=== PATIENT | female | born 1985 | race Caucasian/White ===

== ENCOUNTER 2016-02-17 19:48 | Emergency (ER) | payer OTHER ==
[~2016-02-17] VITALS: Ht 160 cm; Wt 119.7 kg
[~2016-02-17 19:48] MED LIST: ADVIL,NUPRIN,M200 MG PO; AMBIEN5 MG PO; BUPROPION XL150 MG PO; CAPITAL WITH C473 ML PO; CELEXA20 MG PO; CELEXA40 MG PO; CITALOPRAM HBR20 MG PO; DEPAKOTE ER250 MG PO; DEPAKOTE500 MG PO; DIVALPROEX SOD250 M1 PO; FLONASE16 G1 BOTH NARES; LEVAQUIN500 MG PO; NALTREXONE HCL50 MG PO; PEN-VEE K,VEET500 MG PO; SORE THROAT LO1 EAC3 MM; TRIPLE ANTIB28.35 GM TP; TYLENOL EXTRA500 MG PO; TYLENOL PM1 CAPLET PO; TYLENOL REGULA325 MG PO; ZOLPIDEM TARTRAT5 MG PO
[2016-02-17 20:44] LABS: HEMATOCRIT 37.6 % (36.0-46.0); MCHC 32.4 G/DL (30.0-36.0); MCV 86.4 FL (83-99); MEAN PLAT.VOLUME 9.7 uM^3 (9.5-12.4); PLATELET COUNT 346 K/uL (156-360); RBC DIS.WIDTH-CV 13.2 % (11.8-14.6); RBC DIS.WIDTH-SD 40.6 % (39-53); RED BLOOD COUNT 4.35 M/uL (3.80-5.20); WHITE BLOOD COUNT 10.7 K/uL (4.1-10.2)
[2016-02-17] MEDS ORDERED: DEPAKOTE ER500 MG PO (20:50)
[2016-02-17 20:54] LABS: CHLORIDE 105 mEq/L (99-109); POTASSIUM 3.7 mEq/L (3.7-5.4); SODIUM 142 mEq/L (136-147)
[2016-02-17 20:57] LABS: GLUCOSE 113 mg/dL (70-99)
[2016-02-17 20:58] LABS: ANION GAP 10 MEQ/L (2-14)
[2016-02-17 20:59] LABS: TOTAL BILIRUBIN 0.2 mg/dL (0.0-1.0)
[2016-02-17 21:00] LABS: ALKALINE PHOSPHATASE 97 IU/L (3-129); GFR ESTIMATE (CALCULATED) > 59 mL/min/
[2016-02-17 21:01] LABS: UREA NITROGEN (BUN) 12 mg/dL (9-23)
[2016-02-17 21:04] LABS: LIPASE 22 U/L (1.0-51.0)
[2016-02-17 21:10] LABS: QUANTITATIVE HCG < 4.0 MIU/ML
[2016-02-17 21:41] LABS: ADD MIUA? YES; BILIRUBIN NEGATIVE; BLOOD MODERATE; COLOR YELLOW ((YELLOW)); GLUCOSE (STRIP) NEGATIVE; KETONES TRACE; LEUKOCYTES SMALL; NITRITE NEGATIVE; PROTEIN (STRIP) TRACE; SPECIFIC GRAVITY 1.028 (1.000-1.030)
[2016-02-17 22:33] LABS: BACTERIA 1+; CASTS NONE SEEN /LPF; CRYSTALS NONE SEEN; EPITHELIAL CELLS RARE; MUCUS NONE SEEN; UCUL ADDED? NO
[2016-02-17] MEDS ORDERED: PERCOCET 5/31 TABLET PO (22:59)
[2016-02-17] MEDS ORDERED: ZOFRAN ODT4 MG PO (22:59)
[2016-02-17] MEDS ORDERED: AUGMENTIN875 MG PO (22:59)
[2016-02-18 00:21] VITALS: BP 110/57
[2016-02-18] MEDS ORDERED: NAPROXEN500 MG PO (22:56)
[2016-02-18] MEDS ORDERED: TYLENOL EXTRA500 MG PO (22:56)
[2016-02-18] MEDS ORDERED: AMOX TR-K CLV1 EAC4 PO (22:57)
== END 2016-02-18 00:23 | disposition home or self-care (01) ==
LOC: EME 19:48 → RME 19:48
DX: R10.11 Right upper quadrant pain (principal); G47.30 Sleep apnea, unspecified; F17.200 Nicotine dependence, unspecified, uncomplicated
CPT/HCPCS: 74177; 76705; 80053; 81003; 83690; 84702; 85027; 99281; 99284; J1335; J1885; J2405; J3010; J7050

== ENCOUNTER 2016-02-18 18:37 | Observation (INO) | payer OTHER ==
[~2016-02-18] VITALS: Ht 162.6 cm; Wt 119.8 kg
[~2016-02-18 18:37] MED LIST changes: +AUGMENTIN875 MG PO; +DEPAKOTE ER500 MG PO; +PERCOCET 5/31 TABLET PO; +ZOFRAN ODT4 MG PO
[2016-02-18 19:43] LABS: HEMATOCRIT 36.1 % (36.0-46.0); MCHC 32.1 G/DL (30.0-36.0); MEAN PLAT.VOLUME 9.4 uM^3 (9.5-12.4); PLATELET COUNT 305 K/uL (156-360); RBC DIS.WIDTH-SD 40.5 % (39-53); RED BLOOD COUNT 4.15 M/uL (3.80-5.20)
[2016-02-18 19:51] LABS: CHLORIDE 104 mEq/L (99-109); POTASSIUM 4.1 mEq/L (3.7-5.4); SODIUM 138 mEq/L (136-147)
[2016-02-18 19:53] LABS: ADD MIUA? YES; BILIRUBIN NEGATIVE; BLOOD LARGE; COLOR YELLOW ((YELLOW)); GLUCOSE (STRIP) NEGATIVE; KETONES NEGATIVE; LEUKOCYTES SMALL; NITRITE NEGATIVE; PROTEIN (STRIP) TRACE; SPECIFIC GRAVITY 1.031 (1.000-1.030)
[2016-02-18 19:53] LABS: GLUCOSE 86 mg/dL (70-99)
[2016-02-18 19:54] LABS: ANION GAP 7 MEQ/L (2-14)
[2016-02-18 19:57] LABS: ALKALINE PHOSPHATASE 85 IU/L (3-129); GFR ESTIMATE (CALCULATED) > 59 mL/min/
[2016-02-18 19:58] LABS: UREA NITROGEN (BUN) 14 mg/dL (9-23)
[2016-02-18 20:04] LABS: TOTAL BILIRUBIN 0.3 mg/dL (0.0-1.0)
[2016-02-18 20:07] LABS: QUANTITATIVE HCG < 4.0 MIU/ML
[2016-02-18 20:43] LABS: BACTERIA 1+; CASTS NONE SEEN /LPF; CRYSTALS NONE SEEN; EPITHELIAL CELLS 3+; MUCUS 4+; UCUL ADDED? NO
[2016-02-18 22:47] LABS: D-DIMER ELISA 0.37 mg/L FEU (< 0.57)
[2016-02-18] MEDS ORDERED: NAPROXEN500 MG PO (22:56)
[2016-02-18] MEDS ORDERED: TYLENOL EXTRA500 MG PO (22:56)
[2016-02-18] MEDS ORDERED: AMOX TR-K CLV1 EAC4 PO (22:57)
[2016-02-19 00:05] LABS: LIPASE 14 U/L (1.0-51.0)
[2016-02-19 00:27] VITALS: BP 100/48
[2016-02-19 04:48] VITALS: BP 104/50
[2016-02-19 07:50] VITALS: BP 116/57
[2016-02-19 07:57] LABS: HEMATOCRIT 33.3 % (36.0-46.0); MCH 28.2 PG (29.0-34.0); MCHC 32.1 G/DL (30.0-36.0); MCV 87.6 FL (83-99); MEAN PLAT.VOLUME 9.1 uM^3 (9.5-12.4); PLATELET COUNT 234 K/uL (156-360); RBC DIS.WIDTH-CV 13.3 % (11.8-14.6); RBC DIS.WIDTH-SD 42.9 % (39-53); WHITE BLOOD COUNT 7.3 K/uL (4.1-10.2)
[2016-02-19 08:18] LABS: ANION GAP 10 MEQ/L (2-14); CHLORIDE 102 MEQ/L (99-109); POTASSIUM 4.2 MEQ/L (3.7-5.4); SAMPLE HEMOLYSIS CHECK 0; SAMPLE ICTERIC CHECK 0; SAMPLE LIPEMIA CHECK 0; SODIUM 139 MEQ/L (136-147)
[2016-02-19 08:23] LABS: GFR ESTIMATE (CALCULATED) > 59 mL/min/; GLUCOSE 89 mg/dL (70-99); UREA NITROGEN (BUN) 12 mg/dL (9-23)
[2016-02-19 11:40] VITALS: BP 115/56
[2016-02-19 15:27] VITALS: BP 119/63
[2016-02-19 20:15] VITALS: BP 117/71
[2016-02-20 00:01] VITALS: BP 110/58
[2016-02-20 04:54] VITALS: BP 88/50
[2016-02-20 07:50] VITALS: BP 131/74
[2016-02-20] MEDS ORDERED: CEFTIN500 MG PO (11:23)
[2016-02-20] MEDS ORDERED: DICYCLOMINE HCL10 MG PO (11:23)
[2016-02-20] MEDS ORDERED: METOCLOPRAMIDE H5 MG PO (11:23)
[2016-02-20 11:42] VITALS: BP 114/62
== END 2016-02-20 13:20 | disposition home or self-care (01) ==
LOC: EME 18:37 → EDOF 23:30 → 5WEST 02-19 00:27
PROVIDERS: Internal Medicine
DX: R10.11 Right upper quadrant pain (principal); F60.3 Borderline personality disorder; F32.9 Major depressive disorder, single episode, unspecified; Z91.5 Personal history of self-harm; R11.2 Nausea with vomiting, unspecified; R10.13 Epigastric pain; G47.30 Sleep apnea, unspecified; D68.51 Activated protein C resistance; F17.210 Nicotine dependence, cigarettes, uncomplicated; Z83.3 Family history of diabetes mellitus; Z82.49 Family history of ischemic heart disease and other diseases of the circulatory system; Z88.5 Allergy status to narcotic agent
CPT/HCPCS: 76705; 80048; 80053; 81003; 83605; 83690; 84702; 85027; 85379; 99281; 99285; G0378; J1170; J1644; J1885; J2405; J7030; S0028

== ENCOUNTER 2016-03-27 15:31 | Emergency (ER) | payer OTHER ==
[~2016-03-27] VITALS: Ht 161.3 cm; Wt 120.0 kg
[~2016-03-27 15:31] MED LIST changes: +AMOX TR-K CLV1 EAC4 PO; +CEFTIN500 MG PO; +DICYCLOMINE HCL10 MG PO; +METOCLOPRAMIDE H5 MG PO; +NAPROXEN500 MG PO
[2016-03-27 17:18] LABS: HEMATOCRIT 37.3 % (36.0-46.0); MCH 28.2 PG (29.0-34.0); MCV 85.6 FL (83-99); MEAN PLAT.VOLUME 9.5 uM^3 (9.5-12.4); PLATELET COUNT 293 K/uL (156-360); RBC DIS.WIDTH-CV 13.1 % (11.8-14.6); RBC DIS.WIDTH-SD 40.1 % (39-53); RED BLOOD COUNT 4.36 M/uL (3.80-5.20)
[2016-03-27 17:46] LABS: CHLORIDE 104 mEq/L (99-109); POTASSIUM 4.1 mEq/L (3.7-5.4); SODIUM 139 mEq/L (136-147); TROP-I INTERPRETATION NEGATIVE; TROPONIN-I < 0.01 ng/mL (0.0-0.30)
[2016-03-27 17:48] LABS: GLUCOSE 107 mg/dL (70-99)
[2016-03-27 17:50] LABS: ANION GAP 10 MEQ/L (2-14); TOTAL BILIRUBIN 0.3 mg/dL (0.0-1.0)
[2016-03-27 17:52] LABS: ALKALINE PHOSPHATASE 96 IU/L (3-129); GFR ESTIMATE (CALCULATED) > 59 mL/min/
[2016-03-27 17:53] LABS: UREA NITROGEN (BUN) 8 mg/dL (9-23)
[2016-03-27 17:55] LABS: LIPASE 21 U/L (1.0-51.0)
[2016-03-27 19:19] LABS: ADD MIUA? YES; BILIRUBIN NEGATIVE; BLOOD SMALL; COLOR STRAW ((YELLOW)); GLUCOSE (STRIP) NEGATIVE; KETONES NEGATIVE; LEUKOCYTES TRACE; NITRITE NEGATIVE; PROTEIN (STRIP) NEGATIVE; SPECIFIC GRAVITY 1.009 (1.000-1.030); UROBILINOGEN 0.2 MG/DL (0.2-1.0)
[2016-03-27 19:19] LABS: QUANTITATIVE HCG < 4.0 MIU/ML
[2016-03-27 19:21] LABS: BACTERIA NONE SEEN /HPF; EPITHELIAL CELLS 1+ /HPF; MUCUS TRACE /LPF; RED BLOOD CELLS 0-5 /HPF (0-5); UCUL ADDED? NO; WHITE BLOOD CELLS 0-5 /HPF (0-5)
[2016-03-27] MEDS ORDERED: OMEPRAZOLE40 M1 PO (20:52)
[2016-03-27] MEDS ORDERED: ZOFRAN ODT4 MG PO (21:01)
[2016-03-27] MEDS ORDERED: PERCOCET 5/31 TABLET PO (21:01)
[2016-03-27 21:19] VITALS: BP 119/55
== END 2016-03-27 21:19 | disposition home or self-care (01) ==
LOC: EME 15:31
PROVIDERS: Physician Assistant
DX: R07.89 Other chest pain (principal); R10.13 Epigastric pain; M54.9 Dorsalgia, unspecified; F17.200 Nicotine dependence, unspecified, uncomplicated
CPT/HCPCS: 71020; 76705; 80053; 81003; 83690; 84484; 84702; 85027; 93005; 99281; 99284

== ENCOUNTER 2016-04-17 08:52 | Emergency (ER) | payer OTHER ==
[~2016-04-17] VITALS: Ht 161.3 cm; Wt 118.3 kg
[~2016-04-17 08:52] MED LIST changes: +OMEPRAZOLE40 M1 PO
[2016-04-17] MEDS ORDERED: TYLENOL WITH C1 EACH PO (10:02)
[2016-04-17 10:15] VITALS: BP 120/71
== END 2016-04-17 10:15 | disposition home or self-care (01) ==
LOC: EME 08:52
DX: S60.212A Contusion of left wrist, initial encounter (principal); X50.0XXA Overexertion from strenuous movement or load, initial encounter; Y93.E6 Activity, residential relocation
CPT/HCPCS: 73110; 99281; 99283

== ENCOUNTER 2016-05-16 08:52 | Emergency (ER) | payer OTHER ==
[~2016-05-16] VITALS: Ht 160 cm; Wt 113.7 kg
[~2016-05-16 08:52] MED LIST changes: +TYLENOL WITH C1 EACH PO
[2016-05-16 09:58] LABS: EOSINOPHIL (%) 0 % (0-5); HEMATOCRIT 39.7 % (36.0-46.0); IMMATURE GRANULOCYTE (%) 0.4 % (0.0-0.7); INSTRUMENT ABS NEUTROPHIL CT 3.7 K/uL; LYMPHOCYTE COUNT 0.7 K/uL (1.0-2.8); MCH 27.1 PG (29.0-34.0); MCHC 31.5 G/DL (30.0-36.0); MCV 85.9 FL (83-99); MEAN PLAT.VOLUME 9.3 uM^3 (9.5-12.4); MONOCYTE (%) 11.1 % (3-12); MONOCYTE COUNT 0.6 K/uL (0-0.8); NEUTROPHIL (%) 73.9 % (45-76); NEUTROPHIL COUNT 3.7 K/uL (1.8-6.4); PLATELET COUNT 282 K/uL (156-360); RBC DIS.WIDTH-CV 13.2 % (11.8-14.6); RBC DIS.WIDTH-SD 41.1 % (39-53); RED BLOOD COUNT 4.62 M/uL (3.80-5.20); WHITE BLOOD COUNT 4.9 K/uL (4.1-10.2)
[2016-05-16 10:09] LABS: CHLORIDE 102 mEq/L (99-109)
[2016-05-16 10:10] LABS: POTASSIUM 3.4 mEq/L (3.7-5.4); SODIUM 137 mEq/L (136-147)
[2016-05-16 10:12] LABS: GLUCOSE 95 mg/dL (70-99)
[2016-05-16 10:13] LABS: ANION GAP 10 MEQ/L (2-14)
[2016-05-16 10:14] LABS: TOTAL BILIRUBIN 0.5 mg/dL (0.0-1.0)
[2016-05-16 10:15] LABS: ALKALINE PHOSPHATASE 81 IU/L (3-129); GFR ESTIMATE (CALCULATED) > 59 mL/min/
[2016-05-16 10:17] LABS: UREA NITROGEN (BUN) 7 mg/dL (9-23)
[2016-05-16 11:23] LABS: INTERNAL CONTROL VALID? YES
[2016-05-16 11:44] LABS: ADD MIUA? YES; BILIRUBIN NEGATIVE; BLOOD LARGE; COLOR STRAW ((YELLOW)); GLUCOSE (STRIP) NEGATIVE; KETONES LARGE; LEUKOCYTES MODERATE; NITRITE POSITIVE; PROTEIN (STRIP) TRACE; UROBILINOGEN 0.2 MG/DL (0.2-1.0)
[2016-05-16 12:01] LABS: RED BLOOD CELLS 0-5 /HPF (0-5)
[2016-05-16 12:02] LABS: BACTERIA 1+ /HPF; CASTS NONE SEEN /LPF; CRYSTALS NONE SEEN; EPITHELIAL CELLS 1+ /HPF; MUCUS NONE SEEN /LPF
[2016-05-16] MEDS ORDERED: ZOFRAN ODT4 MG PO (12:04)
[2016-05-16] MEDS ORDERED: MACROBID100 MG PO (12:04)
[2016-05-16 13:06] VITALS: BP 120/61
== END 2016-05-16 13:10 | disposition home or self-care (01) ==
LOC: EME 08:52
PROVIDERS: Physician Assistant
DX: N39.0 Urinary tract infection, site not specified (principal); K52.9 Noninfective gastroenteritis and colitis, unspecified; Z87.891 Personal history of nicotine dependence
CPT/HCPCS: 80053; 81003; 84703; 85025; 99281; 99284; J2405; J7030

== ENCOUNTER 2016-05-18 09:03 | Emergency (ER) | payer OTHER ==
[~2016-05-18] VITALS: Ht 160 cm; Wt 115.0 kg
[~2016-05-18 09:03] MED LIST changes: +MACROBID100 MG PO
[2016-05-18 09:46] LABS: HEMATOCRIT 37.7 % (36.0-46.0); MCH 27.6 PG (29.0-34.0); MCHC 32.1 G/DL (30.0-36.0); MCV 85.9 FL (83-99); MEAN PLAT.VOLUME 9.3 uM^3 (9.5-12.4); PLATELET COUNT 303 K/uL (156-360); RBC DIS.WIDTH-CV 13.2 % (11.8-14.6); RBC DIS.WIDTH-SD 41.5 % (39-53); RED BLOOD COUNT 4.39 M/uL (3.80-5.20); WHITE BLOOD COUNT 5.3 K/uL (4.1-10.2)
[2016-05-18] MEDS ORDERED: ZOFRAN ODT4 MG PO (09:46)
[2016-05-18] MEDS ORDERED: MACROBID100 MG PO (09:47)
[2016-05-18 09:54] LABS: CHLORIDE 105 mEq/L (99-109); POTASSIUM 3.5 mEq/L (3.7-5.4); SODIUM 139 mEq/L (136-147)
[2016-05-18 09:56] LABS: GLUCOSE 89 mg/dL (70-99)
[2016-05-18 09:58] LABS: ANION GAP 12 MEQ/L (2-14)
[2016-05-18 10:00] LABS: GFR ESTIMATE (CALCULATED) > 59 mL/min/
[2016-05-18 10:01] LABS: UREA NITROGEN (BUN) 7 mg/dL (9-23)
[2016-05-18 10:10] LABS: QUANTITATIVE HCG < 4.0 MIU/ML
[2016-05-18] MEDS ORDERED: BENTYL10 MG PO (12:44)
[2016-05-18 13:03] VITALS: BP 122/67
== END 2016-05-18 13:03 | disposition home or self-care (01) ==
LOC: EME 09:03
DX: R11.2 Nausea with vomiting, unspecified (principal); R19.7 Diarrhea, unspecified
CPT/HCPCS: 80048; 81003; 84702; 85027; 99281; 99285; J2405; J7030

== ENCOUNTER 2016-06-06 13:34 | Emergency (ER) | payer OTHER ==
[~2016-06-06] VITALS: Ht 160 cm; Wt 114.5 kg
[~2016-06-06 13:34] MED LIST changes: +BENTYL10 MG PO
[2016-06-06 15:39] VITALS: BP 136/79
[2016-06-06] MEDS ORDERED: FLEXERIL10 MG PO (15:46)
[2016-06-06] MEDS ORDERED: LIDODERM 5% P1 PATCH TD (15:46)
[2016-06-06] MEDS ORDERED: PERCOCET 5/31 TABLET PO (15:46)
== END 2016-06-06 16:00 | disposition home or self-care (01) ==
LOC: EME 13:34
DX: S30.0XXA Contusion of lower back and pelvis, initial encounter (principal); S20.229A Contusion of unspecified back wall of thorax, initial encounter; W10.9XXA Fall (on) (from) unspecified stairs and steps, initial encounter; F17.200 Nicotine dependence, unspecified, uncomplicated; Z88.6 Allergy status to analgesic agent
CPT/HCPCS: 71020; 72070; 72100; 99281; 99284; J3010

== ENCOUNTER 2016-06-10 22:05 | Emergency (ER) | payer OTHER ==
[~2016-06-10] VITALS: Ht 160 cm; Wt 114.8 kg
[~2016-06-10 22:05] MED LIST changes: +FLEXERIL10 MG PO; +LIDODERM 5% P1 PATCH TD
[2016-06-10] MEDS ORDERED: ULTRACET1 TABLET PO (23:21)
[2016-06-10] MEDS ORDERED: MOTRIN600 MG PO (23:21)
[2016-06-11 00:18] VITALS: BP 120/72
== END 2016-06-11 00:21 | disposition home or self-care (01) ==
LOC: EME 22:05
DX: S62.607A Fracture of unspecified phalanx of left little finger, initial encounter for closed fracture (principal); S60.512A Abrasion of left hand, initial encounter; S63.92XA Sprain of unspecified part of left wrist and hand, initial encounter; W18.30XA Fall on same level, unspecified, initial encounter; Y93.K1 Activity, walking an animal
CPT/HCPCS: 73130; 99281; 99285

== ENCOUNTER 2016-08-04 13:40 | Emergency (ER) | payer OTHER ==
[~2016-08-04] VITALS: Ht 160 cm; Wt 113.6 kg
[~2016-08-04 13:40] MED LIST changes: +MOTRIN600 MG PO; +ULTRACET1 TABLET PO
[2016-08-04 14:45] LABS: HEMATOCRIT 38.2 % (36.0-46.0); MCH 27.5 PG (29.0-34.0); MCHC 31.9 G/DL (30.0-36.0); MCV 86.2 FL (83-99); MEAN PLAT.VOLUME 9.1 uM^3 (9.5-12.4); PLATELET COUNT 366 K/uL (156-360); RBC DIS.WIDTH-CV 13.1 % (11.8-14.6); RBC DIS.WIDTH-SD 40.6 % (39-53); RED BLOOD COUNT 4.43 M/uL (3.80-5.20); WHITE BLOOD COUNT 9.8 K/uL (4.1-10.2)
[2016-08-04 15:11] LABS: QUANTITATIVE HCG < 4.0 MIU/ML
[2016-08-04 15:23] LABS: CHLORIDE 104 mEq/L (99-109); POTASSIUM 4.2 mEq/L (3.7-5.4); SODIUM 139 mEq/L (136-147)
[2016-08-04 15:26] LABS: GLUCOSE 79 mg/dL (70-99)
[2016-08-04 15:27] LABS: ANION GAP 10 MEQ/L (2-14)
[2016-08-04 15:28] LABS: TOTAL BILIRUBIN 0.2 mg/dL (0.0-1.0)
[2016-08-04 15:29] LABS: ALKALINE PHOSPHATASE 81 IU/L (3-129); GFR ESTIMATE (CALCULATED) > 59 mL/min/
[2016-08-04 15:30] LABS: UREA NITROGEN (BUN) 8 mg/dL (9-23)
[2016-08-04 15:41] LABS: ADD MIUA? YES; BILIRUBIN NEGATIVE; BLOOD NEGATIVE; COLOR YELLOW ((YELLOW)); GLUCOSE (STRIP) NEGATIVE; KETONES NEGATIVE; LEUKOCYTES SMALL; NITRITE NEGATIVE; PROTEIN (STRIP) NEGATIVE; UROBILINOGEN 0.2 MG/DL (0.2-1.0)
[2016-08-04 15:46] LABS: BACTERIA NONE SEEN /HPF; EPITHELIAL CELLS 1+ /HPF; MUCUS TRACE /LPF; RED BLOOD CELLS 0-5 /HPF (0-5); UCUL ADDED? NO; WHITE BLOOD CELLS 0-5 /HPF (0-5)
[2016-08-04 17:05] LABS: LIPASE 18 U/L (1.0-51.0)
[2016-08-04] MEDS ORDERED: ZOFRAN ODT8 MG PO (18:24)
[2016-08-04] MEDS ORDERED: CARAFATE1 GM PO (18:24)
[2016-08-04 18:44] VITALS: BP 141/93
== END 2016-08-04 18:46 | disposition home or self-care (01) ==
LOC: EME 13:40 → EXP 13:40
DX: R10.13 Epigastric pain (principal); F17.200 Nicotine dependence, unspecified, uncomplicated
CPT/HCPCS: 76705; 80053; 81003; 83690; 84702; 85027; 99281; 99284; Q0169

== ENCOUNTER 2016-08-29 17:51 | Emergency (ER) | payer OTHER ==
[~2016-08-29] VITALS: Ht 160 cm; Wt 111.0 kg
[~2016-08-29 17:51] MED LIST changes: +CARAFATE1 GM PO; +ZOFRAN ODT8 MG PO
[2016-08-29 18:41] LABS: HEMATOCRIT 38.5 % (36.0-46.0); MCH 27.3 PG (29.0-34.0); MCHC 32.2 G/DL (30.0-36.0); MCV 84.8 FL (83-99); MEAN PLAT.VOLUME 9.4 uM^3 (9.5-12.4); PLATELET COUNT 344 K/uL (156-360); RBC DIS.WIDTH-CV 13.2 % (11.8-14.6); RBC DIS.WIDTH-SD 40.6 % (39-53); RED BLOOD COUNT 4.54 M/uL (3.80-5.20); WHITE BLOOD COUNT 10.1 K/uL (4.1-10.2)
[2016-08-29 18:54] LABS: CHLORIDE 104 mEq/L (99-109); POTASSIUM 3.9 mEq/L (3.7-5.4); SODIUM 139 mEq/L (136-147)
[2016-08-29 18:56] LABS: GLUCOSE 85 mg/dL (70-99)
[2016-08-29 18:57] LABS: ANION GAP 11 MEQ/L (2-14)
[2016-08-29 18:58] LABS: TOTAL BILIRUBIN 0.2 mg/dL (0.0-1.0)
[2016-08-29 18:59] LABS: ALKALINE PHOSPHATASE 98 IU/L (3-129)
[2016-08-29 19:00] LABS: GFR ESTIMATE (CALCULATED) > 59 mL/min/
[2016-08-29 19:01] LABS: UREA NITROGEN (BUN) 9 mg/dL (9-23)
[2016-08-29 19:03] LABS: LIPASE 18 U/L (1.0-51.0)
[2016-08-29 19:10] LABS: QUANTITATIVE HCG < 4.0 MIU/ML
[2016-08-29 19:31] LABS: ADD MIUA? YES; BILIRUBIN NEGATIVE; BLOOD SMALL; COLOR YELLOW ((YELLOW)); GLUCOSE (STRIP) NEGATIVE; KETONES NEGATIVE; LEUKOCYTES NEGATIVE; NITRITE NEGATIVE; PROTEIN (STRIP) NEGATIVE; SPECIFIC GRAVITY 1.014 (1.000-1.030); UROBILINOGEN 0.2 MG/DL (0.2-1.0)
[2016-08-29 19:38] LABS: BACTERIA NONE SEEN /HPF; EPITHELIAL CELLS 1+ /HPF; MUCUS TRACE /LPF; RED BLOOD CELLS 0-5 /HPF (0-5); UCUL ADDED? NO; WHITE BLOOD CELLS 0-5 /HPF (0-5)
[2016-08-30] MEDS ORDERED: ZOFRAN ODT4 MG PO (00:09)
[2016-08-30] MEDS ORDERED: MOTRIN800 MG PO (00:09)
[2016-08-30] MEDS ORDERED: PERCOCET 5/31 TABLET PO (00:09)
[2016-08-30 00:32] VITALS: BP 94/49
[2016-08-31] MEDS ORDERED: ZANTAC150 MG PO (16:12)
== END 2016-08-30 00:45 | disposition home or self-care (01) ==
LOC: EME 17:51
DX: R10.11 Right upper quadrant pain (principal); R10.31 Right lower quadrant pain; F17.200 Nicotine dependence, unspecified, uncomplicated; G47.30 Sleep apnea, unspecified; Z99.89 Dependence on other enabling machines and devices; Z88.5 Allergy status to narcotic agent
CPT/HCPCS: 74177; 76705; 80053; 81003; 83690; 84702; 85027; 99281; 99285; J1200; J1885; J2405; J2765; J3010; J7030

== ENCOUNTER 2016-08-31 11:16 | Observation (INO) | payer OTHER ==
[~2016-08-31] VITALS: Ht 161.3 cm; Wt 111.3 kg
[~2016-08-31 11:16] MED LIST changes: +MOTRIN800 MG PO
[2016-08-31 12:15] LABS: HEMATOCRIT 37.5 % (36.0-46.0); MCH 27.4 PG (29.0-34.0); MCV 85.6 FL (83-99); MEAN PLAT.VOLUME 9.4 uM^3 (9.5-12.4); PLATELET COUNT 316 K/uL (156-360); RBC DIS.WIDTH-CV 13.2 % (11.8-14.6); RBC DIS.WIDTH-SD 40.7 % (39-53); RED BLOOD COUNT 4.38 M/uL (3.80-5.20); WHITE BLOOD COUNT 7.8 K/uL (4.1-10.2)
[2016-08-31 12:26] LABS: CHLORIDE 103 mEq/L (99-109); POTASSIUM 4.1 mEq/L (3.7-5.4); SODIUM 139 mEq/L (136-147)
[2016-08-31 12:28] LABS: GLUCOSE 77 mg/dL (70-99)
[2016-08-31 12:30] LABS: ANION GAP 9 MEQ/L (2-14)
[2016-08-31 12:32] LABS: ALKALINE PHOSPHATASE 96 IU/L (3-129); GFR ESTIMATE (CALCULATED) > 59 mL/min/
[2016-08-31 12:33] LABS: UREA NITROGEN (BUN) 8 mg/dL (9-23)
[2016-08-31 12:34] LABS: TOTAL BILIRUBIN 0.3 mg/dL (0.0-1.0)
[2016-08-31 12:41] LABS: QUANTITATIVE HCG < 4.0 MIU/ML
[2016-08-31 13:06] LABS: ADD MIUA? NO; BILIRUBIN NEGATIVE; BLOOD NEGATIVE; COLOR STRAW ((YELLOW)); GLUCOSE (STRIP) NEGATIVE; KETONES NEGATIVE; LEUKOCYTES NEGATIVE; NITRITE NEGATIVE; PROTEIN (STRIP) NEGATIVE; SPECIFIC GRAVITY 1.012 (1.000-1.030); UCUL ADDED? NO; UROBILINOGEN 0.2 MG/DL (0.2-1.0)
[2016-08-31] MEDS ORDERED: ZANTAC150 MG PO (16:12)
[2016-08-31 17:45] VITALS: BP 144/73
[2016-08-31 20:33] VITALS: BP 116/59
[2016-09-01] VITALS (7 sets, daily range): BP systolic 107–131; BP diastolic 55–63
[2016-09-01 07:02] LABS: EOSINOPHIL (%) 3.1 % (0-5); EOSINOPHIL COUNT 0.2 K/uL (0-0.3); HEMATOCRIT 34.8 % (36.0-46.0); IMMATURE GRANULOCYTE (%) 0.3 % (0.0-0.7); INSTRUMENT ABS NEUTROPHIL CT 4.9 K/uL; LYMPHOCYTE COUNT 1.5 K/uL (1.0-2.8); MCH 27.8 PG (29.0-34.0); MCHC 31.9 G/DL (30.0-36.0); MCV 87.2 FL (83-99); MEAN PLAT.VOLUME 9.8 uM^3 (9.5-12.4); MONOCYTE (%) 6.4 % (3-12); MONOCYTE COUNT 0.5 K/uL (0-0.8); NEUTROPHIL (%) 68.6 % (45-76); NEUTROPHIL COUNT 4.9 K/uL (1.8-6.4); PLATELET COUNT 271 K/uL (156-360); RBC DIS.WIDTH-CV 13.3 % (11.8-14.6); RBC DIS.WIDTH-SD 42.5 % (39-53); RED BLOOD COUNT 3.99 M/uL (3.80-5.20); WHITE BLOOD COUNT 7.1 K/uL (4.1-10.2)
[2016-09-02 00:43] VITALS: BP 116/68
[2016-09-02 07:55] VITALS: BP 121/61
[2016-09-02 12:24] VITALS: BP 134/60
[2016-09-02 16:43] VITALS: BP 132/77
[2016-09-02 19:34] VITALS: BP 127/75
[2016-09-02 23:56] VITALS: BP 127/63
[2016-09-03 06:56] LABS: HEMATOCRIT 35.5 % (36.0-46.0); MCH 28.6 PG (29.0-34.0); MCHC 33.2 G/DL (30.0-36.0); MEAN PLAT.VOLUME 9.5 uM^3 (9.5-12.4); PLATELET COUNT 278 K/uL (156-360); RBC DIS.WIDTH-CV 13.3 % (11.8-14.6); RBC DIS.WIDTH-SD 41.6 % (39-53); RED BLOOD COUNT 4.13 M/uL (3.80-5.20); WHITE BLOOD COUNT 6.6 K/uL (4.1-10.2)
[2016-09-03 07:10] VITALS: BP 114/55
[2016-09-03] MEDS ORDERED: AUGMENTIN875 MG PO (10:59)
== END 2016-09-03 11:23 | disposition home or self-care (01) ==
LOC: EME 11:16 → EDOF 15:51 → 2EAST 15:51
PROVIDERS: Surgery
DX: K37 Unspecified appendicitis (principal); F32.9 Major depressive disorder, single episode, unspecified; G43.909 Migraine, unspecified, not intractable, without status migrainosus; F17.200 Nicotine dependence, unspecified, uncomplicated; G40.909 Epilepsy, unspecified, not intractable, without status epilepticus; G47.30 Sleep apnea, unspecified; D68.51 Activated protein C resistance; E66.01 Morbid (severe) obesity due to excess calories
CPT/HCPCS: 74177; 80053; 81003; 84702; 85025; 85027; 99281; 99285; G0378; J0500; J1170; J1644; J1885; J2405; J2543; J2765; J3010; J3480; J7030; J7042; J7050; S0028

== ENCOUNTER 2017-01-11 02:06 | Emergency (ER) | payer OTHER ==
[~2017-01-11] VITALS: Ht 160 cm; Wt 110.1 kg
[~2017-01-11 02:06] MED LIST changes: +ZANTAC150 MG PO
[2017-01-11] MEDS ORDERED: BENADRYL59 ML TP (04:18)
[2017-01-11] MEDS ORDERED: ZYRTEC10 M3 PO (04:18)
[2017-01-11 04:59] VITALS: BP 145/85
== END 2017-01-11 06:17 | disposition home or self-care (01) ==
LOC: EME 02:06
DX: T80.62XA Other serum reaction due to vaccination, initial encounter (principal); R21 Rash and other nonspecific skin eruption; M79.601 Pain in right arm; R42 Dizziness and giddiness; T50.B95A Adverse effect of other viral vaccines, initial encounter; F17.200 Nicotine dependence, unspecified, uncomplicated
CPT/HCPCS: 99281; 99284

== ENCOUNTER 2017-02-09 16:00 | Emergency (ER) | payer OTHER ==
[~2017-02-09] VITALS: Ht 160 cm; Wt 109.2 kg
[~2017-02-09 16:00] MED LIST changes: +BENADRYL59 ML TP; +ZYRTEC10 M3 PO
[2017-02-09 16:39] LABS: HEMATOCRIT 40.4 % (36.0-46.0); HEMOGLOBIN 12.8 G/DL (11.9-15.5); MCH 27.6 PG (29.0-34.0); MCHC 31.7 G/DL (30.0-36.0); MCV 87.3 FL (83-99); PLATELET COUNT 334 K/uL (156-360); RBC DIS.WIDTH-CV 13.3 % (11.8-14.6); RBC DIS.WIDTH-SD 42.6 % (39-53); RED BLOOD COUNT 4.63 M/uL (3.80-5.20); WHITE BLOOD COUNT 10.5 K/uL (4.1-10.2)
[2017-02-09 16:46] LABS: ALBUMIN 4.3 g/dL (3.2-4.8); CHLORIDE 102 mEq/L (99-109); POTASSIUM 3.8 mEq/L (3.7-5.4); SODIUM 138 mEq/L (136-147)
[2017-02-09 16:48] LABS: GLUCOSE 91 mg/dL (70-99); TOTAL PROTEIN 8.3 g/dL (6.4-8.3)
[2017-02-09 16:50] LABS: TOTAL BILIRUBIN 0.3 mg/dL (0.0-1.0)
[2017-02-09 16:52] LABS: ALKALINE PHOSPHATASE 94 IU/L (3-129); CREATININE 0.8 mg/dL (0.6-1.3); GFR ESTIMATE (CALCULATED) > 59 mL/min/
[2017-02-09 16:53] LABS: UREA NITROGEN (BUN) 11 mg/dL (9-23)
[2017-02-09 16:54] LABS: AST (GOT) 15 IU/L (2-34)
[2017-02-09 16:55] LABS: ALT (GPT) 15 IU/L (3-49)
[2017-02-09 17:03] LABS: QUANTITATIVE HCG < 4.0 MIU/ML
[2017-02-09 17:06] LABS: LIPASE 16 U/L (1.0-51.0)
[2017-02-09 17:19] LABS: APPEARANCE CLEAR ((CLEAR)); BILIRUBIN NEGATIVE; BLOOD SMALL; COLOR YELLOW ((YELLOW)); GLUCOSE (STRIP) NEGATIVE; KETONES 5; LEUKOCYTES NEGATIVE; NITRITE NEGATIVE; PROTEIN (STRIP) NEGATIVE; SPECIFIC GRAVITY 1.023 (1.000-1.030); UROBILINOGEN 0.2 MG/DL (0.2-1.0)
[2017-02-09 17:34] LABS: BACTERIA RARE /HPF; EPITHELIAL CELLS 2+ /HPF; MUCUS 1+ /LPF; UCUL ADDED? NO; WHITE BLOOD CELLS 0-5 /HPF (0-5)
[2017-02-09] MEDS ORDERED: ZOFRAN ODT4 MG PO (17:48)
[2017-02-09 18:23] VITALS: BP 128/89
== END 2017-02-09 18:25 | disposition home or self-care (01) ==
LOC: EME 16:00
DX: R11.2 Nausea with vomiting, unspecified (principal); R19.7 Diarrhea, unspecified; B34.9 Viral infection, unspecified; R53.83 Other fatigue; R42 Dizziness and giddiness; F17.200 Nicotine dependence, unspecified, uncomplicated
CPT/HCPCS: 80053; 81003; 83690; 84702; 85027; 99281; 99285; J2405; J7030

== ENCOUNTER 2017-04-05 02:08 | Emergency (ER) | payer OTHER ==
[~2017-04-05] VITALS: Ht 160 cm; Wt 111.1 kg
[2017-04-05] MEDS ORDERED: ZITHROMAX Z-PA250 MG PO (06:10)
[2017-04-05] MEDS ORDERED: SUDAFED 12-HOU120 MG PO (06:10)
[2017-04-05 06:21] VITALS: BP 118/89
== END 2017-04-05 06:22 | disposition home or self-care (01) ==
LOC: EME 02:08
DX: J01.90 Acute sinusitis, unspecified (principal); J02.9 Acute pharyngitis, unspecified; Z87.891 Personal history of nicotine dependence
CPT/HCPCS: 87651 90; 99281; 99283

== ENCOUNTER 2017-05-22 14:59 | Emergency (ER) | payer OTHER ==
[~2017-05-22] VITALS: Ht 160 cm; Wt 110.0 kg
[~2017-05-22 14:59] MED LIST changes: +SUDAFED 12-HOU120 MG PO; +ZITHROMAX Z-PA250 MG PO
[2017-05-22 16:12] LABS: HEMATOCRIT 38.6 % (36.0-46.0); HEMOGLOBIN 12.6 G/DL (11.9-15.5); MCH 28.2 PG (29.0-34.0); MCHC 32.6 G/DL (30.0-36.0); MCV 86.4 FL (83-99); PLATELET COUNT 366 K/uL (156-360); RBC DIS.WIDTH-CV 13.7 % (11.8-14.6); RBC DIS.WIDTH-SD 42.8 % (39-53); RED BLOOD COUNT 4.47 M/uL (3.80-5.20); WHITE BLOOD COUNT 8.9 K/uL (4.1-10.2)
[2017-05-22 16:23] LABS: CHLORIDE 104 mEq/L (99-109); POTASSIUM 4.1 mEq/L (3.7-5.4); SODIUM 140 mEq/L (136-147)
[2017-05-22 16:24] LABS: GLUCOSE 82 mg/dL (70-99)
[2017-05-22 16:28] LABS: CREATININE 0.7 mg/dL (0.6-1.3); GFR ESTIMATE (CALCULATED) > 59 mL/min/
[2017-05-22 16:29] LABS: UREA NITROGEN (BUN) 10 mg/dL (9-23)
[2017-05-22 16:34] LABS: TROP-I INTERPRETATION NEGATIVE; TROPONIN-I < 0.01 ng/mL (0.0-0.30)
[2017-05-22 19:24] LABS: D-DIMER ELISA < 150.00 ng/mLDDU (<230)
[2017-05-22 19:41] LABS: TROP-I INTERPRETATION NEGATIVE; TROPONIN-I < 0.01 ng/mL (0.0-0.30)
[2017-05-22 19:57] VITALS: BP 112/71
== END 2017-05-22 19:57 | disposition home or self-care (01) ==
LOC: EME 14:59
PROVIDERS: Nurse Practitioner Family
DX: O26.891 Other specified pregnancy related conditions, first trimester (principal); R07.89 Other chest pain; O99.511 Diseases of the respiratory system complicating pregnancy, first trimester; G47.30 Sleep apnea, unspecified; O99.341 Other mental disorders complicating pregnancy, first trimester; F32.9 Major depressive disorder, single episode, unspecified; Z3A.00 Weeks of gestation of pregnancy not specified; D68.2 Hereditary deficiency of other clotting factors; Z88.5 Allergy status to narcotic agent
CPT/HCPCS: 71046; 80048; 84484; 84702; 85027; 85379; 93005; 99281; 99284

== ENCOUNTER 2017-06-27 20:37 | Emergency (ER) | payer OTHER ==
[~2017-06-27] VITALS: Ht 160 cm; Wt 112.9 kg
[2017-06-27 22:10] LABS: HEMATOCRIT 33.9 % (36.0-46.0); HEMOGLOBIN 11.3 G/DL (11.9-15.5); MCH 28.2 PG (29.0-34.0); MCHC 33.3 G/DL (30.0-36.0); MCV 84.5 FL (83-99); PLATELET COUNT 305 K/uL (156-360); RBC DIS.WIDTH-CV 13.6 % (11.8-14.6); RBC DIS.WIDTH-SD 41.9 % (39-53); RED BLOOD COUNT 4.01 M/uL (3.80-5.20); WHITE BLOOD COUNT 10.5 K/uL (4.1-10.2)
[2017-06-27 22:18] LABS: ALBUMIN 4.1 g/dL (3.2-4.8); CHLORIDE 103 mEq/L (99-109); POTASSIUM 3.3 mEq/L (3.7-5.4); SODIUM 139 mEq/L (136-147)
[2017-06-27 22:21] LABS: GLUCOSE 87 mg/dL (70-99); TOTAL PROTEIN 7.7 g/dL (6.4-8.3)
[2017-06-27 22:23] LABS: TOTAL BILIRUBIN 0.4 mg/dL (0.0-1.0)
[2017-06-27 22:24] LABS: ALKALINE PHOSPHATASE 100 IU/L (3-129); CREATININE 0.6 mg/dL (0.6-1.3); GFR ESTIMATE (CALCULATED) > 59 mL/min/
[2017-06-27 22:25] LABS: UREA NITROGEN (BUN) 8 mg/dL (9-23)
[2017-06-27 22:26] LABS: AST (GOT) 13 IU/L (2-34)
[2017-06-27 22:27] LABS: ALT (GPT) 11 IU/L (3-49)
[2017-06-27 22:51] LABS: QUANTITATIVE HCG 110624.5 MIU/ML
[2017-06-27 23:26] LABS: APPEARANCE SL.HAZY ((CLEAR)); BILIRUBIN NEGATIVE; BLOOD NEGATIVE; COLOR YELLOW ((YELLOW)); GLUCOSE (STRIP) NEGATIVE; KETONES 20; LEUKOCYTES NEGATIVE; NITRITE NEGATIVE; PROTEIN (STRIP) NEGATIVE; SPECIFIC GRAVITY 1.025 (1.000-1.030); UROBILINOGEN 0.2 MG/DL (0.2-1.0)
[2017-06-27 23:41] LABS: BACTERIA RARE /HPF; EPITHELIAL CELLS RARE /HPF; MUCUS 2+ /LPF; UCUL ADDED? NO; WHITE BLOOD CELLS 0-5 /HPF (0-5)
[2017-06-27] MEDS ORDERED: ZOFRAN ODT4 MG PO (23:47)
[2017-06-28 00:25] VITALS: BP 108/68
== END 2017-06-28 00:22 | disposition home or self-care (01) ==
LOC: RME 20:37 → EME 20:37 → RME 06-28 00:22
PROVIDERS: Nurse Practitioner Acute Care
DX: O21.9 Vomiting of pregnancy, unspecified (principal); O99.111 Other diseases of the blood and blood-forming organs and certain disorders involving the immune mechanism complicating pregnancy, first trimester; E87.6 Hypokalemia; O99.511 Diseases of the respiratory system complicating pregnancy, first trimester; G47.30 Sleep apnea, unspecified; O99.341 Other mental disorders complicating pregnancy, first trimester; F32.9 Major depressive disorder, single episode, unspecified; Z3A.09 9 weeks gestation of pregnancy; Z99.89 Dependence on other enabling machines and devices; Z87.891 Personal history of nicotine dependence; Z88.5 Allergy status to narcotic agent
CPT/HCPCS: 80053; 81003; 84702; 85027; 99281; 99285

== ENCOUNTER 2017-07-15 03:41 | Emergency (ER) | payer OTHER ==
[~2017-07-15] VITALS: Ht 160 cm; Wt 112.2 kg
[2017-07-15 04:14] LABS: HEMOGLOBIN 10.8 G/DL (11.9-15.5); MCHC 32.7 G/DL (30.0-36.0); MCV 85.5 FL (83-99); PLATELET COUNT 264 K/uL (156-360); RBC DIS.WIDTH-CV 13.8 % (11.8-14.6); RED BLOOD COUNT 3.86 M/uL (3.80-5.20); WHITE BLOOD COUNT 8.4 K/uL (4.1-10.2)
[2017-07-15 05:19] LABS: APPEARANCE SL.HAZY ((CLEAR)); BILIRUBIN NEGATIVE; BLOOD MODERATE; COLOR YELLOW ((YELLOW)); GLUCOSE (STRIP) NEGATIVE; KETONES NEGATIVE; LEUKOCYTES NEGATIVE; NITRITE NEGATIVE; PROTEIN (STRIP) NEGATIVE; SPECIFIC GRAVITY 1.024 (1.000-1.030); UROBILINOGEN 0.2 MG/DL (0.2-1.0)
[2017-07-15 05:23] LABS: BACTERIA RARE /HPF; EPITHELIAL CELLS 1+ /HPF; MUCUS TRACE /LPF; RED BLOOD CELLS 0-5 /HPF (0-5); UCUL ADDED? NO; WHITE BLOOD CELLS 0-5 /HPF (0-5)
[2017-07-15 05:52] VITALS: BP 120/80
[2017-07-17] MEDS ORDERED: VYVANSE20 MG PO (12:36)
[2017-07-17] MEDS ORDERED: AMBIEN5 MG PO (12:36)
[2017-07-17] MEDS ORDERED: LEXAPRO5 MG PO (12:37)
== END 2017-07-15 05:58 | disposition home or self-care (01) ==
LOC: EME 03:41
DX: O02.1 Missed abortion (principal); Z3A.11 11 weeks gestation of pregnancy; Z87.891 Personal history of nicotine dependence
CPT/HCPCS: 76801; 81003; 84702; 85027; 86900; 86901; 99281; 99284

== ENCOUNTER 2017-07-18 11:59 | Day surgery (SDC) | payer OTHER ==
[~2017-07-18] VITALS: Ht 160 cm; Wt 112.0 kg
[~2017-07-18 11:59] MED LIST changes: +LEXAPRO5 MG PO; +VYVANSE20 MG PO
[2017-07-18 12:47] LABS: BASOPHIL (%) 0.4 % (0-1); EOSINOPHIL (%) 1.1 % (0-5); EOSINOPHIL COUNT 0.1 K/uL (0-0.3); HEMOGLOBIN 11.7 G/DL (11.9-15.5); IMMATURE GRANULOCYTE (%) 0.2 % (0.0-0.7); LYMPHOCYTE (%) 20.9 % (15-42); LYMPHOCYTE COUNT 1.7 K/uL (1.0-2.8); MCH 28.1 PG (29.0-34.0); MCHC 33.4 G/DL (30.0-36.0); MCV 84.1 FL (83-99); MONOCYTE COUNT 0.5 K/uL (0-0.8); NEUTROPHIL (%) 71.4 % (45-76); PLATELET COUNT 293 K/uL (156-360); RBC DIS.WIDTH-CV 13.6 % (11.8-14.6); RBC DIS.WIDTH-SD 42.4 % (39-53); RED BLOOD COUNT 4.16 M/uL (3.80-5.20); WHITE BLOOD COUNT 8.3 K/uL (4.1-10.2)
[2017-07-18 12:54] LABS: INTER. NORMALIZED RATIO 1.2
[2017-07-18 12:56] LABS: PTT 32.3 SEC (25-37)
[2017-07-18 12:57] VITALS: BP 119/58
[2017-07-18] MEDS ORDERED: IBUPROFEN800 MG PO (15:31)
[2017-07-18] MEDS ORDERED: ENDOCET 5-3251 EACH PO (15:31)
[2017-07-18 16:30] VITALS: BP 119/63
[2017-07-18 17:30] VITALS: BP 118/70
[2017-07-18 18:45] VITALS: BP 120/81
== END 2017-07-18 18:45 | disposition home or self-care (01) ==
LOC: SDC 11:59
PROVIDERS: Obstetrics & Gynecology
PROC: 10D17ZZ Extraction of Products of Conception, Retained, Via Natural or Artificial Opening (ICD-10-PCS; principal; 2017-07-18)
DX: O02.1 Missed abortion (principal); Z3A.09 9 weeks gestation of pregnancy; F41.8 Other specified anxiety disorders; F31.9 Bipolar disorder, unspecified; G47.30 Sleep apnea, unspecified; Z87.891 Personal history of nicotine dependence
CPT/HCPCS: 85025; 85610; 85730; 86850; 86900; 86901; 88305; J1100; J1170; J1885; J2250; J2405; J3010

== ENCOUNTER 2017-07-28 18:54 | Emergency (ER) | payer OTHER ==
[~2017-07-28] VITALS: Ht 160 cm; Wt 108.0 kg
[~2017-07-28 18:54] MED LIST changes: +ENDOCET 5-3251 EACH PO; +IBUPROFEN800 MG PO
[2017-07-28 20:11] LABS: HEMATOCRIT 35.8 % (36.0-46.0); HEMOGLOBIN 11.6 G/DL (11.9-15.5); MCH 27.2 PG (29.0-34.0); MCHC 32.4 G/DL (30.0-36.0); MCV 83.8 FL (83-99); PLATELET COUNT 338 K/uL (156-360); RBC DIS.WIDTH-CV 12.9 % (11.8-14.6); RBC DIS.WIDTH-SD 39.5 % (39-53); RED BLOOD COUNT 4.27 M/uL (3.80-5.20); WHITE BLOOD COUNT 10.1 K/uL (4.1-10.2)
[2017-07-28 20:20] LABS: CHLORIDE 103 mEq/L (99-109); POTASSIUM 4.1 mEq/L (3.7-5.4); SODIUM 140 mEq/L (136-147)
[2017-07-28 20:22] LABS: GLUCOSE 91 mg/dL (70-99)
[2017-07-28 20:26] LABS: CREATININE 0.8 mg/dL (0.6-1.3); GFR ESTIMATE (CALCULATED) > 59 mL/min/
[2017-07-28 20:27] LABS: UREA NITROGEN (BUN) 10 mg/dL (9-23)
[2017-07-28 21:16] VITALS: BP 102/58
== END 2017-07-28 21:17 | disposition home or self-care (01) ==
LOC: EME 18:54 → EXP 18:54
PROVIDERS: Nurse Practitioner Family
DX: N93.9 Abnormal uterine and vaginal bleeding, unspecified (principal); Z98.890 Other specified postprocedural states; G47.30 Sleep apnea, unspecified; F17.200 Nicotine dependence, unspecified, uncomplicated; Z88.5 Allergy status to narcotic agent
CPT/HCPCS: 76856; 80048; 81003; 85027; 99281; 99284

== ENCOUNTER 2017-09-23 18:57 | Emergency (ER) | payer OTHER ==
[~2017-09-23] VITALS: Ht 160 cm; Wt 106.5 kg
[2017-09-23] MEDS ORDERED: NORCO 5/3251 TABLET PO (21:26)
[2017-09-23] MEDS ORDERED: BACITRAYCIN PLU28 G1 TP (21:27)
[2017-09-23 21:36] VITALS: BP 109/80
== END 2017-09-23 21:43 | disposition home or self-care (01) ==
LOC: EME 18:57
DX: T23.102A Burn of first degree of left hand, unspecified site, initial encounter (principal); X12.XXXA Contact with other hot fluids, initial encounter; Y93.89 Activity, other specified; G47.30 Sleep apnea, unspecified; F17.200 Nicotine dependence, unspecified, uncomplicated; Z88.5 Allergy status to narcotic agent
CPT/HCPCS: 99281; 99284

== ENCOUNTER 2017-10-02 04:21 | Inpatient (IN) | payer OTHER ==
[~2017-10-02] VITALS: Ht 160 cm; Wt 110.6 kg
[~2017-10-02 04:21] MED LIST changes: +BACITRAYCIN PLU28 G1 TP; +LEXAPRO10 MG PO; -LEXAPRO5 MG PO; +NORCO 5/3251 TABLET PO
[2017-10-02 04:56] LABS: HEMATOCRIT 38.2 % (36.0-46.0); HEMOGLOBIN 12.3 G/DL (11.9-15.5); MCH 27.6 PG (29.0-34.0); MCHC 32.2 G/DL (30.0-36.0); MCV 85.7 FL (83-99); PLATELET COUNT 336 K/uL (156-360); RBC DIS.WIDTH-CV 14.2 % (11.8-14.6); RBC DIS.WIDTH-SD 44.2 % (39-53); RED BLOOD COUNT 4.46 M/uL (3.80-5.20); WHITE BLOOD COUNT 10.1 K/uL (4.1-10.2)
[2017-10-02 04:58] LABS: AMPHETAMINE PRESUMPTIVE POSITIVE (500 ng/mL); BARBITURATES NEGATIVE (200 ng/mL); BENZODIAZEPINES PRESUMPTIVE POSITIVE (150 ng/mL); BUPRENORPHINE NEGATIVE (10 ng/mL); COCAINE NEGATIVE (150 ng/mL); METHADONE NEGATIVE (200 ng/mL); METHAMPHETAMINE NEGATIVE (500 ng/mL); OPIATES (MORPHINE) NEGATIVE (100 ng/mL); OXYCODONE NEGATIVE (100 ng/mL); PHENCYCLIDINE NEGATIVE (25 ng/mL); PROPOXYPHENE NEGATIVE (300 ng/mL); THC CANNABINOIDS NEGATIVE (50 ng/mL); TRICYCLIC ANTIDEPRESSANTS NEGATIVE (300 ng/mL)
[2017-10-02 05:07] LABS: ALBUMIN 4.2 g/dL (3.2-4.8)
[2017-10-02 05:08] LABS: CHLORIDE 103 mEq/L (99-109); POTASSIUM 3.8 mEq/L (3.7-5.4); SODIUM 138 mEq/L (136-147)
[2017-10-02 05:10] LABS: GLUCOSE 95 mg/dL (70-99); TOTAL PROTEIN 7.7 g/dL (6.4-8.3)
[2017-10-02 05:12] LABS: TOTAL BILIRUBIN 0.2 mg/dL (0.0-1.0)
[2017-10-02 05:13] LABS: SERUM ETHYL ALCOHOL < 10 mg/dL
[2017-10-02 05:14] LABS: ALKALINE PHOSPHATASE 101 IU/L (3-129); CREATININE 0.8 mg/dL (0.6-1.3); GFR ESTIMATE (CALCULATED) > 59 mL/min/
[2017-10-02 05:15] LABS: AST (GOT) 12 IU/L (2-34)
[2017-10-02 05:16] LABS: UREA NITROGEN (BUN) 10 mg/dL (9-23)
[2017-10-02 05:17] LABS: SALICYLATE < 5.0 MG/DL (15-30)
[2017-10-02 05:18] LABS: ACETAMINOPHEN (TYLENOL) < 10 mcg/mL (10-30); ALT (GPT) 12 IU/L (3-49); LIPASE 16 U/L (1.0-51.0)
[2017-10-02 05:24] LABS: QUANTITATIVE HCG < 4.0 MIU/ML
[2017-10-02 05:36] LABS: BENZODIAZEPINES, URINE SCREEN POSITIVE (200 ng/mL)
[2017-10-02 05:54] LABS: MAGNESIUM 2.4 mg/dL (1.3-2.7)
[2017-10-02 10:19] LABS: BASE EXCESS 0.5 mEq/L (-3 to +3); BICARBONATE 27.7 mEq/L (22-26); CARBOXY HGB 3.8 % (0-5); COMMENTS - BLOOD GASES A+C+; DEVICE NC; METHEMOGLOBIN 0.9 % (0-1.5); O2 FLOW 3 L/MIN; PCO2 55 mm Hg (35-45); PO2 118 mm Hg (80-100); SITE RR; pH 7.31 (7.35-7.45)
[2017-10-02 16:06] VITALS: BP 131/85
[2017-10-02 19:00] VITALS: BP 136/79
[2017-10-02 22:30] VITALS: BP 138/71
[2017-10-03 03:30] VITALS: BP 119/67
[2017-10-03 05:46] LABS: HEMATOCRIT 34.5 % (36.0-46.0); HEMOGLOBIN 10.9 G/DL (11.9-15.5); MCH 27.6 PG (29.0-34.0); MCHC 31.6 G/DL (30.0-36.0); MCV 87.3 FL (83-99); PLATELET COUNT 302 K/uL (156-360); RBC DIS.WIDTH-CV 14.2 % (11.8-14.6); RBC DIS.WIDTH-SD 45.5 % (39-53); RED BLOOD COUNT 3.95 M/uL (3.80-5.20); WHITE BLOOD COUNT 8.1 K/uL (4.1-10.2)
[2017-10-03 06:04] LABS: ALBUMIN 3.4 G/DL (3.2-4.8); ALKALINE PHOSPHATASE 87 IU/L (3-129); ALT (GPT) 6 IU/L (3-49); AST (GOT) 11 IU/L (2-34); CHLORIDE 107 MEQ/L (99-109); CREATININE 0.5 MG/DL (0.6-1.3); GFR ESTIMATE (CALCULATED) > 59 mL/min/; GLUCOSE 93 mg/dL (70-99); POTASSIUM 3.8 MEQ/L (3.7-5.4); SODIUM 141 MEQ/L (136-147); TOTAL BILIRUBIN 0.2 MG/DL (0.0-1.0); TOTAL PROTEIN 5.8 G/DL (6.4-8.3); UREA NITROGEN (BUN) 7 mg/dL (9-23)
[2017-10-03 08:50] VITALS: BP 115/66
== END 2017-10-03 16:00 | DRG 918 ==
LOC: EME 04:21 → 4EAST 11:55 → EDOF 11:55 → ENRESERV 11:55 → 4EAST 15:17 → ENPENDDIS 10-03 13:40 → 4EAST 10-03 16:00
PROVIDERS: Emergency Medicine; Hospitalist; Internal Medicine Critical Care Medicine
DX: T43.222A Poisoning by selective serotonin reuptake inhibitors, intentional self-harm, initial encounter (principal); E87.2 Acidosis; T43.212A Poisoning by selective serotonin and norepinephrine reuptake inhibitors, intentional self-harm, initial encounter; T42.6X2A Poisoning by other antiepileptic and sedative-hypnotic drugs, intentional self-harm, initial encounter; T42.4X2A Poisoning by benzodiazepines, intentional self-harm, initial encounter; F33.9 Major depressive disorder, recurrent, unspecified; D68.51 Activated protein C resistance; F60.3 Borderline personality disorder; I10 Essential (primary) hypertension; K21.9 Gastro-esophageal reflux disease without esophagitis; G40.909 Epilepsy, unspecified, not intractable, without status epilepticus; G47.33 Obstructive sleep apnea (adult) (pediatric); F41.9 Anxiety disorder, unspecified; F17.200 Nicotine dependence, unspecified, uncomplicated; E66.01 Morbid (severe) obesity due to excess calories; Z68.41 Body mass index [BMI] 40.0-44.9, adult; Z91.5 Personal history of self-harm
CPT/HCPCS: 36600; 70450; 71045; 80053; 83690; 83735; 84702; 84999; 85027; 93005; 99281; 99285; G0480; J7030

== ENCOUNTER 2017-10-03 15:42 | Inpatient (IN) | payer OTHER ==
[~2017-10-03] VITALS: Ht 160 cm; Wt 108.0 kg
[2017-10-03 16:20] VITALS: BP 122/56
[2017-10-03 16:22] VITALS: BP 122/56
[2017-10-04 07:30] VITALS: BP 115/57
[2017-10-04 16:22] VITALS: BP 121/62
[2017-10-05 07:43] VITALS: BP 117/57
[2017-10-05 15:56] VITALS: BP 109/64
[2017-10-06 09:04] VITALS: BP 104/59
[2017-10-06 14:55] VITALS: BP 111/51
[2017-10-07 07:29] VITALS: BP 93/54
[2017-10-07 15:09] VITALS: BP 111/53
[2017-10-08 08:01] VITALS: BP 114/63
[2017-10-08] MEDS ORDERED: VYVANSE20 MG PO (09:43)
[2017-10-08] MEDS ORDERED: LEXAPRO10 MG PO (09:43)
== END 2017-10-08 10:54 | disposition home or self-care (01) | DRG 885 ==
LOC: 1WEST 15:42 → ENRESERV 15:43 → 1WEST 16:07
DX: F33.2 Major depressive disorder, recurrent severe without psychotic features (principal); F60.3 Borderline personality disorder; T50.902A Poisoning by unspecified drugs, medicaments and biological substances, intentional self-harm, initial encounter; D68.51 Activated protein C resistance; G40.909 Epilepsy, unspecified, not intractable, without status epilepticus; G47.30 Sleep apnea, unspecified; Z91.5 Personal history of self-harm; Z81.8 Family history of other mental and behavioral disorders
CPT/HCPCS: 97150 GO